=== PATIENT | female | born 1985 | race Caucasian/White ===

== ENCOUNTER 2019-11-16 06:29 | Emergency (ER) | payer MEDICAID, SELFPAY ==
[~2019-11-16] VITALS: Ht 157.5 cm; Wt 89.0 kg
--- NOTE | 2019-11-16 06:44 | NUR ---
PT TO ED POST FALL YESTERDAY, REPORTS SHE SLIPPED DOWN X2 STAIRS AND HAD INJURY TO RIGHT KNEE DENIES HEAD TRAUMA OR LOC. REPORTS KNEE PAIN HASN'T GONE AWAY. ERP IN ROOM TO ROSE[facility] PT. PT CONNECTED TO MONITORING, CALL LIGHT WITHIN REACH, UPDATED ON POC.
[2019-11-16 06:45] VITALS: BP 118/56
[2019-11-16] MEDS ORDERED: IBUPROFEN 600 MG TABLET ONE (06:49)
--- NOTE | 2019-11-16 06:50 | NUR ---
REPORT FROM MENDY
--- NOTE | 2019-11-16 06:51 | NUR ---
PT MEDICATED PER MAR, DENIES FURTHER NEEDS AT THIS TIME.
[2019-11-16] MEDS ORDERED: IBUPROFEN 600 MG TABLET PO ONE (07:00)
--- NOTE | 2019-11-16 08:19 | NUR ---
Patient/Caregiver given discharge instructions and they have confirmed that they understand the instructions. Patient ambulatory with steady gait.
== END 2019-11-16 08:32 | disposition home or self-care (01) ==
LOC: ED 06:49
DX: S83.411A Sprain of medial collateral ligament of right knee, initial encounter (principal); F17.210 Nicotine dependence, cigarettes, uncomplicated; X50.1XXA Overexertion from prolonged static or awkward postures, initial encounter; Y93.9 Activity, unspecified; Y92.009 Unspecified place in unspecified non-institutional (private) residence as the place of occurrence of the external cause; Y99.8 Other external cause status
CPT/HCPCS: 29505; 99283

== ENCOUNTER 2020-01-10 | Emergency (ER) | payer MEDICAID ==
[~2020-01-10] VITALS: Ht 157.5 cm; Wt 89.7 kg
[2020-01-10 00:02] VITALS: BP 128/74
--- NOTE | 2020-01-10 00:15 | NUR ---
34/F. Complaints of itching, burning vaginal area. Discharge. Denies back pain, abd pain, N/V. Tachycardic in triage. MD aware.
--- NOTE | 2020-01-10 00:26 | NUR ---
Urine collected. Pelvic cart at bedside.
[2020-01-10] MEDS ORDERED: AZITHROMYCIN 500 MG TABLET PO ONE (00:30)
[2020-01-10] MEDS ORDERED: CEFTRIAXONE 250 MG IM ONE (00:30)
[2020-01-10 00:42] LABS: HCG UR SG 1.031 (1.003-1.030)
[2020-01-10] MEDS ORDERED: CEFTRIAXONE 250 MG ONE (00:50)
[2020-01-10 00:51] LABS: MICROSCOPIC INDICATED
[2020-01-10] MEDS ORDERED: AZITHROMYCIN 250 MG TABLET ONE (00:51)
[2020-01-10] MEDS ORDERED: LIDOCAINE-MPF 1%, 2ML ONE (00:52)
[2020-01-10 00:56] LABS: CLUE CELLS NONE SEEN (NONE SEEN); WET PREP WBCS MODERATE (FEW)
[2020-01-10] MEDS ORDERED: AZITHROMYCIN 500 MG TABLET ONE (01:06)
--- NOTE | 2020-01-10 01:42 | NUR ---
Pt given prescription. Ambulatory. PA okay with pt discharging with fast HR. Pt stable. No new complaints.
== END 2020-01-10 01:44 | disposition home or self-care (01) ==
LOC: ED 00:17
DX: A55 Chlamydial lymphogranuloma (venereum) (principal); A54.9 Gonococcal infection, unspecified; A59.9 Trichomoniasis, unspecified; R30.0 Dysuria; N89.8 Other specified noninflammatory disorders of vagina
CPT/HCPCS: 81001; 81025; 87086; 87210; 87491; 87591; 87808; 96372; 99284; J0696